=== PATIENT | male | born 1950 | race Caucasian/White ===

== ENCOUNTER 2016-05-25 09:27 | Emergency (ER) | payer OTHER ==
[2016-05-25] MEDS ORDERED: Ibuprofen 800 MG TAB ONE (09:52)
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
== END 2016-05-25 10:13 | disposition home or self-care (01) ==
LOC: BURERS 09:27
DX: S93.401A Sprain of unspecified ligament of right ankle, initial encounter (principal); I10 Essential (primary) hypertension; W22.8XXA Striking against or struck by other objects, initial encounter
CPT/HCPCS: 29515

== ENCOUNTER 2017-07-09 20:19 | Emergency (ER) | payer MEDICARE ==
[2017-07-09 20:46] LABS: #Basophils 0.1 thou/uL (0.0-0.2); #Eosinphils 0.2 thou/uL (0.0-0.7); #Lymphocytes 2.6 thou/uL (1.20-3.40); #Monocytes 0.7 thou/uL (0.11-0.59); #Neutrophils 5.2 thou/uL (1.40-6.50); %Basophils 1.2 % (0.0-1.0); %Eosinophils 2.2 % (0.0-10.0); %Lymphocytes 29.5 % (21.0-51.0); %Monocytes 7.5 % (0.0-10.0); %Neutrophils 59.7 % (42.0-75.0); Hemoglobin 14.6 g/dL (14.0-18.0); Mean Corpuscular HGB CONC 35.1 g/dL (32.0-36.0); Mean Corpuscular Hemoglobin 29.8 pg (27.0-31.0); Mean Corpuscular Volume 84.9 fl (80.0-94.0); Mean Platelet Volume 7.3 fL (7.4-10.4); Platelet Count 209 thou/uL (130-400); RBC Distribution Width 11.9 % (11.5-14.5); Red Blood Cell (RBC) Count 4.88 mill/uL (4.70-6.10); White Blood Cell (WBC) Count 8.7 thou/uL (4.8-10.8)
[2017-07-09 21:03] LABS: ALT (SGPT) 21 U/L (8-55); AST (SGOT) 27 U/L (5-34); Alkaline Phosphatase 102 U/L (40-150); Anion Gap 15 mmol/L (10-20); BUN (Urea Nitrogen) 10 mg/dL (8.4-25.7); Bilirubin, Total 0.4 mg/dL (0.2-1.2); Calc. Creatinine Clearance 0 mL/min (70-130); Calcium 9.5 mg/dL (7.8-10.44); Carbon Dioxide 23 mmol/L (23-31); Chloride 105 mmol/L (98-107); Estimated GFR-MDRD 71; Globulin 3.3 g/dL (2.4-3.5); Glucose 134 mg/dL (80-115); Lipase 52 U/L (8-78); Potassium 3.8 mmol/L (3.5-5.1); Protein, Total 7.3 g/dL (5.8-8.1); Sodium 139 mmol/L (136-145)
[2017-07-09 21:28] LABS: Critical Call Chem Troponin I 0; Troponin I 1.323 ng/mL (< 0.028)
--- NOTE | 2017-07-09 21:28 | RAD ---
PORTABLE CHEST 07/09/17 An AP portable film at 0229 shows a normal sized heart and clear lungs. No infiltrate or effusion was seen. The trachea is midline. The bony structures showed no acute change. IMPRESSION: No acute finding. POS: HOME
[2017-07-09] MEDS ORDERED: Enoxaparin Sodium 100 MG/ML SYRINGE ONE (21:31)
[2017-07-09 21:35] LABS: CKMB 12.9 ng/mL (0-6.6)
== END 2017-07-09 22:10 | disposition short-term general hospital (02) ==
LOC: BURERS 20:19
DX: I21.4 Non-ST elevation (NSTEMI) myocardial infarction (principal); I10 Essential (primary) hypertension; Z87.442 Personal history of urinary calculi; Z79.899 Other long term (current) drug therapy
CPT/HCPCS: 71045; 80053; 82553; 83690; 84484; 85025; 93005; 96372; J1650

== ENCOUNTER 2017-07-21 13:17 | Emergency (ER) | payer MEDICARE ==
[2017-07-21 13:45] LABS: pH (venous) 7.41 (7.35-7.45)
[2017-07-21 13:46] LABS: Base Excess -3.9 mEq/L (-2 - +2)
[2017-07-21 13:47] LABS: Hemoglobin (Hb) 12.2 g/dL (12.6-17.4)
[2017-07-21 13:49] LABS: #Basophils 0.1 thou/uL (0.0-0.2); #Eosinphils 0.3 thou/uL (0.0-0.7); #Lymphocytes 1.3 thou/uL (1.20-3.40); #Monocytes 0.8 thou/uL (0.11-0.59); #Neutrophils 7.7 thou/uL (1.40-6.50); %Basophils 0.8 % (0.0-1.0); %Eosinophils 2.8 % (0.0-10.0); %Monocytes 7.6 % (0.0-10.0); %Neutrophils 75.9 % (42.0-75.0); Hemoglobin 11.6 g/dL (14.0-18.0); Mean Corpuscular HGB CONC 34.9 g/dL (32.0-36.0); Mean Corpuscular Hemoglobin 29.7 pg (27.0-31.0); Mean Corpuscular Volume 85.2 fl (80.0-94.0); Mean Platelet Volume 5.4 fL (7.4-10.4); Platelet Count 409 thou/uL (130-400); RBC Distribution Width 12.2 % (11.5-14.5); Red Blood Cell (RBC) Count 3.91 mill/uL (4.70-6.10); White Blood Cell (WBC) Count 10.1 thou/uL (4.8-10.8)
[2017-07-21 13:54] LABS: INR-International Normal Ratio 1.1; PTT 29.5 SEC (22.9-36.1); Prothrombin Time 14.4 SEC (12.0-14.7)
[2017-07-21 14:05] LABS: CKMB 0.8 ng/mL (0-6.6); Troponin I 0.239 ng/mL (< 0.028)
[2017-07-21 14:06] LABS: ALT (SGPT) 37 U/L (8-55); AST (SGOT) 35 U/L (5-34); Albumin 3.5 g/dL (3.4-4.8); Alkaline Phosphatase 79 U/L (40-150); Anion Gap 17 mmol/L (10-20); BUN (Urea Nitrogen) 9 mg/dL (8.4-25.7); Bilirubin, Total 0.6 mg/dL (0.2-1.2); Calc. Creatinine Clearance 0 mL/min (70-130); Calcium 9.1 mg/dL (7.8-10.44); Carbon Dioxide 17 mmol/L (23-31); Chloride 109 mmol/L (98-107); Estimated GFR-MDRD Greater than 90; Globulin 3.4 g/dL (2.4-3.5); Glucose 104 mg/dL (80-115); Potassium 4.1 mmol/L (3.5-5.1); Protein, Total 6.9 g/dL (5.8-8.1); Sodium 139 mmol/L (136-145)
[2017-07-21] MEDS ORDERED: Furosemide 40 MG/4 ML VIAL ONE (14:29)
--- NOTE | 2017-07-21 15:10 | RAD ---
PORTABLE CHEST: Date: 07/21/17 PROVIDED CLINICAL HISTORY: Dyspnea. FINDINGS: Comparison with 07/13/17. Cardiac silhouette is within normal limits. Median sternotomy changes are seen. Interval removal of r ight-sided central line. There is patchy air space disease present at the left lung base with obscura tion of the medial left hemidiaphragm possibly reflecting pleural and/or parenchymal opacity. There i s no evidence for pneumothorax. The right lung appears clear. IMPRESSION: Left basilar pleural and/or parenchymal opacity. Correlate with concerns for pneumonia. Follow-up rec ommended. POS: [facility]
== END 2017-07-21 14:41 | disposition home or self-care (01) ==
LOC: BURERS 13:17
DX: R06.02 Shortness of breath (principal); E78.5 Hyperlipidemia, unspecified; I10 Essential (primary) hypertension; Z87.891 Personal history of nicotine dependence; Z79.82 Long term (current) use of aspirin; Z79.899 Other long term (current) drug therapy
CPT/HCPCS: 71045; 80053; 82553; 82805; 83880; 84484; 85025; 85610; 85730; 93005; 96374; J1940

== ENCOUNTER 2017-07-26 18:38 | Emergency (ER) | payer MEDICARE | END 2017-07-26 19:25 | disposition home or self-care (01) | LOC: BURERS 18:38 | DX: Z48.812 Encounter for surgical aftercare following surgery on the circulatory system (principal); E78.5 Hyperlipidemia, unspecified; I10 Essential (primary) hypertension; Z87.442 Personal history of urinary calculi; Z87.891 Personal history of nicotine dependence; Z79.82 Long term (current) use of aspirin; Z79.899 Other long term (current) drug therapy ==

== ENCOUNTER 2020-08-16 15:54 | Outpatient (CLI) | payer MEDICARE | END 2020-08-16 15:55 | disposition home or self-care (01) | LOC: BURRAD 15:54 | PROVIDERS: ATTEND Nurse Practitioner Family | DX: M54.5 Low back pain (principal); M51.37 Other intervertebral disc degeneration, lumbosacral region | CPT/HCPCS: 72100 ==